=== PATIENT | female | born 1980 | race Two or more races ===

== ENCOUNTER → 2017-10-06 | Outpatient (CLI) | payer BC ==
[2017-10-06 08:36] LABS: Basophils # (auto) 0.1 uL; Eosinophils # (auto) 0.1 uL; Lymphocytes # (auto) 2.1 uL; Mean Corpuscular Hemoglobin 26.2 pg (28.0-32.0); Monocytes % (auto) 5.8 % (0.0-12.0); Red Cell Distribution Width 15.9 % (11.8-14.3)
[2017-10-06 08:38] LABS: Basophils % (auto) 1.1 % (0.0-2.0); Eosinophils % (auto) 1.4 % (0.0-7.0); Hematocrit 37.8 % (36.0-46.0); Hemoglobin 12.4 g/dL (12.2-16.2); Lymphocytes % (auto) 35.3 % (10.0-50.0); Mean Corpuscular Hgb Conc. 32.7 g/dL (32.0-36.0); Mean Corpuscular Volume 80.1 fL (80.0-100.0); Monocytes # (auto) 0.3 uL; Neutrophils # (auto) 3.4 uL; Neutrophils % (auto) 56.4 % (37.0-80.0); Nucleated Red Blood Cells % 0.1 %; Platelet Count (auto) 330 10^3/uL (140-450); Red Blood Cells 4.71 10^6/uL (4.0-5.20); White Blood Cell 5.9 10^3/uL (4.4-10.8)
[2017-10-06 08:58] LABS: Urine Bacteria NONE SEEN /hpf (None Seen); Urine Blood TRACE /uL (Negative); Urine Mucus FEW (None Seen); Urine Specific Gravity 1.024 (1.001-1.035); Urine WBC 1 /hpf (0 - 5)
[2017-10-06 09:04] LABS: Albumin 3.5 g/dL (3.4-5.0); BUN/Creatinine Ratio 10.4; Bilirubin, Total 0.4 mg/dL (0.2-1.0); Calcium 8.6 mg/dL (8.5-10.1); Total Protein 7.3 g/dL (6.4-8.2)
== END | disposition home or self-care (01) ==
LOC: LAB 08:16
PROVIDERS: ATTEND Family Medicine
DX: Z00.01 Encounter for general adult medical examination with abnormal findings (principal); R79.89 Other specified abnormal findings of blood chemistry
CPT/HCPCS: 36415; 80053; 80061; 81001; 85025

== ENCOUNTER → 2018-12-28 | Outpatient (CLI) | payer BC ==
[2018-12-28 07:30] LABS: Eosinophils # (auto) 0.2 uL; Hematocrit 39.6 % (36.0-46.0); Lymphocytes # (auto) 1.9 uL; Lymphocytes % (auto) 33.8 % (10.0-50.0); Monocytes # (auto) 0.4 uL; Neutrophils # (auto) 3.2 uL; White Blood Cell 5.7 10^3/uL (4.4-10.8)
[2018-12-28 07:32] LABS: Basophils # (auto) 0.1 uL; Basophils % (auto) 1.1 % (0.0-2.0); Eosinophils % (auto) 2.9 % (0.0-7.0); Hemoglobin 13.2 g/dL (12.2-16.2); Mean Corpuscular Hemoglobin 27.1 pg (28.0-32.0); Mean Corpuscular Hgb Conc. 33.5 g/dL (32.0-36.0); Mean Corpuscular Volume 80.9 fL (80.0-100.0); Monocytes % (auto) 6.1 % (0.0-12.0); Neutrophils % (auto) 56.1 % (37.0-80.0); Platelet Count (auto) 342 10^3/uL (140-450); Red Blood Cells 4.89 10^6/uL (4.0-5.20)
[2018-12-28 07:39] LABS: Urine WBC None Seen /hpf (0 - 5)
[2018-12-28 07:48] LABS: Urine Bacteria NONE SEEN /hpf (None Seen); Urine Blood 1+ /uL (Negative); Urine Specific Gravity 1.016 (1.001-1.035)
[2018-12-28 08:00] LABS: Albumin 3.5 g/dL (3.4-5.0)
[2018-12-28 08:05] LABS: BUN/Creatinine Ratio 11.9; Bilirubin, Total 0.3 mg/dL (0.2-1.0); Total Protein 7.4 g/dL (6.4-8.2)
== END | disposition home or self-care (01) ==
LOC: LAB 07:05
PROVIDERS: ATTEND Family Medicine
DX: Z00.00 Encounter for general adult medical examination without abnormal findings (principal); R79.89 Other specified abnormal findings of blood chemistry
CPT/HCPCS: 36415; 80053; 80061; 81001; 84443; 85025

== ENCOUNTER 2020-10-01 18:29 | Emergency (ER) | payer BC ==
[~2020-10-01] VITALS: Ht 165.1 cm; Wt 52.2 kg
[2020-10-01 18:38] VITALS: BP 141/86
[2020-10-01 20:23] LABS: Basophils # (auto) 0.1 10 ^3/uL (0-0.2); Eosinophils # (auto) 0.1 10 ^3/uL (0-0.8); Eosinophils % (auto) 1.6 % (0.0-7.0); Hematocrit 38.1 % (36.0-46.0); Hemoglobin 12.9 g/dL (12.2-16.2); Lymphocytes # (auto) 2.8 10 ^3/uL (0.4-5.4); Lymphocytes % (auto) 42.8 % (10.0-50.0); Mean Corpuscular Hgb Conc. 33.9 g/dL (32.0-36.0); Mean Corpuscular Volume 85.6 fL (80.0-100.0); Monocytes # (auto) 0.5 10 ^3/uL (0-1.3); Monocytes % (auto) 7.5 % (0.0-12.0); Neutrophils % (auto) 47.1 % (37.0-80.0); Platelet Count (auto) 315 10^3/uL (140-450); Red Blood Cells 4.45 10^6/uL (4.0-5.20); Red Cell Distribution Width 14.3 % (11.8-14.3); White Blood Cell 6.4 10^3/uL (4.4-10.8)
[2020-10-01 20:31] LABS: Albumin 3.4 g/dL (3.4-5.0); Calcium 8.6 mg/dL (8.5-10.1); Potassium 4.3 mmol/L (3.5-5.1)
[2020-10-01 20:35] LABS: BUN/Creatinine Ratio 9.5; Bilirubin, Total 0.3 mg/dL (0.2-1.0); Total Protein 7.1 g/dL (6.4-8.2)
[2020-10-01 22:44] LABS: Urine Bacteria FEW /hpf (None Seen); Urine Blood Negative /uL (Negative); Urine Specific Gravity 1.005 (1.001-1.035); Urine WBC 3 /hpf (0 - 5)
== END 2020-10-01 23:24 | disposition home or self-care (01) ==
LOC: ER 18:29
DX: R10.11 Right upper quadrant pain (principal)
CPT/HCPCS: 36415; 74176; 80053; 81001; 85025

== ENCOUNTER → 2022-11-07 | Outpatient (CLI) | payer BC | END | disposition home or self-care (01) | LOC: LAB 06:14 | PROVIDERS: ATTEND Nurse Practitioner | DX: N39.0 Urinary tract infection, site not specified (principal); L29.2 Pruritus vulvae | CPT/HCPCS: 87086 ==

== ENCOUNTER → 2023-07-12 | Outpatient (CLI) | payer BC ==
[2023-07-12 07:48] LABS: Basophils # (auto) 0.1 10 ^3/uL (0-0.2); Basophils % (auto) 1.4 % (0.0-2.0); Eosinophils # (auto) 0.1 10 ^3/uL (0-0.8); Eosinophils % (auto) 1.7 % (0.0-7.0); Hematocrit 39.7 % (36.0-46.0); Hemoglobin 13.1 g/dL (12.2-16.2); Lymphocytes # (auto) 2.3 10 ^3/uL (0.4-5.4); Lymphocytes % (auto) 37.5 % (10.0-50.0); Mean Corpuscular Hgb Conc. 32.9 g/dL (32.0-36.0); Monocytes # (auto) 0.4 10 ^3/uL (0-1.3); Monocytes % (auto) 6.1 % (0.0-12.0); Neutrophils # (auto) 3.2 10 ^3/uL (1.6-8.6); Neutrophils % (auto) 53.3 % (37.0-80.0); Nucleated Red Blood Cells % 0.1 %; Red Blood Cells 4.67 10^6/uL (4.0-5.20); Red Cell Distribution Width 15.1 % (11.8-14.3); White Blood Cell 6.1 10^3/uL (4.4-10.8)
[2023-07-12 08:14] LABS: Chloride 104 mmol/L (98-107); Sodium 138 mmol/L (136-145)
[2023-07-12 08:15] LABS: Anion Gap 6 (5-15); Calcium 9.3 mg/dL (8.5-10.1); Carbon Dioxide 28 mmol/L (20-30)
[2023-07-12 08:20] LABS: BUN/Creatinine Ratio 8.2 (10.0-20.0); Blood Urea Nitrogen 7 mg/dL (9-23); Glucose 85 mg/dL (74-106)
[2023-07-13 07:06] LABS: RPR Non Reactive (Non Reactive)
[2023-07-13 08:59] LABS: Hepatitis B Surface Antibody Negative (Negative)
[2023-07-13 09:27] LABS: Hepatitis B Core Total AB Negative (Negative)
[2023-07-13 14:31] LABS: Hepatitis A Total Antibody Negative (Negative); Hepatitis B Surface Antigen Negative (Negative); Hepatitis C Antibody Negative (Negative)
[2023-07-13 23:06] LABS: Chlamydia Trachomatis, NAA Negative (Negative); Neisseria gonorrhoeae, NAA Negative (Negative)
== END | disposition home or self-care (01) ==
LOC: LAB 07:27
PROVIDERS: ATTEND Student in an Organized Health Care Education/Training Program
DX: Z30.9 Encounter for contraceptive management, unspecified (principal); L30.9 Dermatitis, unspecified; N76.0 Acute vaginitis; H60.313 Diffuse otitis externa, bilateral; B37.31 Acute candidiasis of vulva and vagina
CPT/HCPCS: 36415; 80048; 85025; 86592; 86703; 86704; 86706; 86708; 86803; 87340

== ENCOUNTER → 2023-07-20 | Outpatient (CLI) | payer BC | END | disposition home or self-care (01) | LOC: LAB 14:39 | PROVIDERS: ATTEND Student in an Organized Health Care Education/Training Program | DX: N76.0 Acute vaginitis (principal) | CPT/HCPCS: 87081 ==

== ENCOUNTER → 2023-09-01 | Outpatient (CLI) | payer BC ==
[2023-09-01 07:56] LABS: Thyroid Stimulating Hormone 3.68 uIU/mL (0.55-4.78)
[2023-09-01 08:17] LABS: Beta HCG, Quantitative 0.8 mIU/mL (1.5-4.2)
== END | disposition home or self-care (01) ==
LOC: LAB 06:54
PROVIDERS: ATTEND Obstetrics & Gynecology
DX: N95.1 Menopausal and female climacteric states (principal)
CPT/HCPCS: 36415; 82670; 83002; 84403; 84443; 84702

== ENCOUNTER 2024-12-15 16:52 | Emergency (ER) | payer BC ==
[~2024-12-15] VITALS: Ht 165.1 cm; Wt 55.1 kg
[2024-12-15 17:00] VITALS: BP 126/77; TEMP 98.4
[2024-12-15 17:22] LABS: Urine Bacteria FEW /hpf (None Seen); Urine Blood TRACE /uL (Negative); Urine Clarity Clear (Clear); Urine Color Colorless (Yellow); Urine Protein, UAD Negative (Negative); Urine Specific Gravity 1.003 (1.001-1.035); Urine Squamous Epithelial Cell FEW /hpf (<5); Urine Urobilinogen Normal (Negative); Urine WBC < 1 /HPF (0-5); Urine pH 5.5 (5.0-9.0)
[2024-12-15 17:41] VITALS: PULSE 74; RESP 20; O2SAT 96
--- NOTE | 2024-12-15 18:16 | DVH ---
Procedure: CT CT AB PEL WO CON-NO ORAL OR IV 12/15/2024 05:10 PM Indication: flank pain Comparison Study: CT ABD PELVIS WO CONTRAST on DOS: 10/01/20 Technique: Axial images were obtained and reformatted in coronal and sagittal planes. All CT scans at this medical facility are performed using dose modulation techniques as appropriate to a performed e xam including the following: Automated exposure control was utilized; adjustment of the MA and/or KV according to patient size; and use of iterative reconstruction technique. CT Dose: CTDI volume is 5.4 1 mGy. Dose-length product is 260.37 mGy*cm FINDINGS: Lower Chest: Unremarkable. Hepatobiliary: Cholelithiasis without CT evidence of cholecystitis. Spleen: Unremarkable. Pancreas: Unremarkable. Adrenal Glands: Unremarkable. tract: The kidneys are normal in size bilaterally . Mild bilateral hydronephrosis, right greater than left. No ureterolithiasis. The urinary bladder is unremarkable. GI tract: The stomach is moderately distended with ingested material. No evidence of small bowel obst ruction. The large bowel is unremarkable. The appendix is not visualized. No inflammatory change is n oted in the right lower quadrant. Lymphatics: No mesenteric, retroperitoneal or periportal lymphadenopathy. Vasculature: The abdominal aorta is normal in caliber. Pelvic Organs: Unremarkable Bones/soft tissues: No acute abnormality. Clitoral piercing. Other: None. IMPRESSION: 1. Mild bilateral hydronephrosis, right greater than left. No obstructing calculi are seen. 2. Cholelithiasis without evidence of cholecystitis.
[2024-12-15] MEDS ORDERED: IBUP-1454 PO (18:29)
[2024-12-15] MEDS ORDERED: NITR-87 PO (18:29)
--- NOTE | 2024-12-15 18:30 | ED.PDOC ---
History of Present Illness HPI Comments 44-year-old female complaining of right-sided back pain that radiates to her right lower quadrant. Patient was states it started earlier in the day. Denies any urinary discomfort. Nothing makes it better, nothing makes it worse. No fevers no chills no nausea no vomiting. Chief Complaint: Flank Pain Time Seen by MD: 16:57 Primary Care Provider: LUNA Mustafa Notes: Nurses Notes Allergies: Coded Allergies: NO KNOWN ALLERGIES (Unverified , 10/01/20) Information Source: Patient Mode of Arrival: Ambulatory Past Medical History PAST MEDICAL HISTORY: Denies Surgical History: Denies all surgeries INLETTER History: No Pertinent INLETTER History Family History Family History: Reviewed,noncontributory to illness Social History Smoker: Non-Smoker Alcohol: Occasionally Drugs: Denies Drug Use Lives In: Home Constitutional: denies: chills, diaphoresis, fatigue, fever, malaise, sweats, weakness, others EENTM: denies: blurred vision, double vision, ear bleeding, ear discharge, ear drainage, ear pain, ear ringing, eye pain, eye redness, hearing loss, mouth pain, mouth swelling, nasal discharge, nose bleeding, nose congestion, nose pain, photophobia, tearing, throat pain, throat swelling, voice changes, others Respiratory: denies: cough, hemoptysis, orthopnea, SOB at rest, shortness of breath, SOB with excertion, stridor, wheezing, others Cardiovascular: denies: chest pain, dizzy spells, diaphoresis, Dyspnea on exertion, edema, irregular heart beat, left arm pain, lightheadedness, palpitations, PND, syncope, others Gastrointestinal: reports: abdominal pain; denies: abdomen distended, blood str eaked bowels, constipated, diarrhea, dysphagia, difficulty swallowing, hematemesis, melena, nausea, poor appetite, poor fluid intake, rectal bleeding, rectal pain, vomiting, others Genitourinary: reports: flank pain; denies: abnormal vagina bleeding, burning, dyspareunia, dysuria, frequency, hematuria, incontinence, pain, , vagina discharge, urgency, others Neurological: denies: dizziness, fainting, headache, left sided numbness, left sided weakness, numbness, paresthesia, pre-existing deficit, right sided numbness, right sided weakness, seizure, speech problems, tingling, tremors, weakness, others Musculoskeletal: denies: back pain, gout, joint pain, joint swelling, muscle pain, muscle stiffness, neck pain, others Integumetry: denies: bruises, change in color, change in hair/nails, dryness, laceration, lesions, lumps, rash, wounds, others Allergic/Immunocompromised: denies: Difficulty Healing, Frequent Infections, Hives, Itching, others Hematologic/Lymphatic: denies: anemia, blood clots, easy bleeding, easy bruising, swollen glands, others Physical Exam General Appearance: No Apparent Distress, Normal HEENT: Normal ENT Inspection, Pharynx Normal, TMs Normal Neck: Full Range of Motion, Non-Tender, Normal, Normal Inspection Respiratory: Chest Non-Tender, Lungs Clear, No Accessory Muscle Use, No Respiratory Distress, Normal Breath Sounds Cardiovascular: No Edema, No JVD, No Murmur, No Gallop, Normal Peripheral Pulses, Regular Rate/Rhythm Breast Exam: Deferred Gastrointestinal: No Organomegaly, Non Tender, No Pulsatile Mass, Normal Bowel Sounds, Soft Genitalia: Deferred Pelvic: Deferred Rectal: Deferred Extremities: No calf tenderness, Normal capillary refill, Normal inspection, Normal range of motion, Non-tender, No pedal edema Musculoskeletal : Extremity Location: Other (No CVA tenderness) Apperance: Normal Neurologic: Alert, 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 Was a procedure done?: No Differential Dx Considerations may include: Pyelonephritis, obstructing kidney stone, cholelithiasis, cholecystitis. X-Ray, Labs, Meds, VS Vital Signs Date Time Temp Pulse Resp B/P (MAP) Pulse Ox O2 Delivery O2 Flow Rate FiO2 12/15/24 17:41 74 20 96 Room Air* 0 21 12/15/24 17:00 98.4 84 20 126/77 (93) 99 98.4 Lab Test 12/15/24 16:00 Range/Units Urine Color Colorless Yellow Urine Clarity Clear Clear Urine pH 5.5 5.0-9.0 Urine Specific [place] 1.003 1.001-1.035 Urine Protein Negative Negative Urine Ketones Negative Negative Urine Blood Trace H Negative /uL Urine Nitrite Negative Negative Urine Bilirubin Negative Negative Urine Urobilinogen Normal Negative mg/dL Urine Leukocyte Esterase Negative Negative /uL Urine RBC 1 0 - 4 /hpf Urine Microscopic WBC < 1 0-5 /HPF Urine Squamous Epithelial Cells Few <5 /hpf Urine Bacteria Few H None Seen /hpf Urine Glucose Normal Normal mg/dL X-Ray, Labs, Meds, VS Comment Imaging: X-rays and CT scans were reviewed and interpreted by this provider, imaging shows hydronephrosis with bilateral kidneys and cholelithiasis without evidence of cholecystitis. Pending radiology review. Laboratory: Labs reviewed and interpreted by this provider. No significant abnormalities noted. Patient has prior medical visits reviewed. Med reconciliation performed Vital signs reviewed Time of 1ST Reevaluation: 18:30 Reevaluation 1ST: Unchanged Patient Education/Counseling: Diagnosis, Treatment, Need For Follow Up (Follow up in the emergency department in the next 24-48 hours if symptoms worsen. It was advised to follow up with your primary care doctor in the next 3-4 days for further evaluation.) Family Education/Counseling: Diagnosis, Treatment Departure 1 Departure Time of Disposition: 18:27 Impression: Primary Impression: Urinary tract infection Qualified Codes: N30.01 - Acute cystitis with hematuria Additional Impression: Cholelithiasis Qualified Codes: K80.80 - Other cholelithiasis without obstruction Disposition: HOME / SELF CARE / HOMELESS Condition: Fair e-Prescriptions Ibuprofen (Ibuprofen) 600 Mg Tab 1 TAB PO TID PRN, #30 TAB Prov: FELI PATTEN 12/15/24 Nitrofurantoin Monohydrate Mac (Macrobid) 100 Mg Cap 100 MG PO BID for 7 Days, #14 CAP Prov: FELI PATTEN 12/15/24 Discharged With: Self Critical Care Note Critical Care Time?: No Stability Stability form required: No Heart Score Heart Score: Heart Score Response (Comments) Value History N/A 0 EKG N/A 0 Age N/A 0 Risk Factors N/A 0 Troponin N/A 0 Total 0 FELI PATTEN Dec 15, 2024 18:30
[2024-12-15] MEDS: KETOROLAC TROMETH 30 MG/ML 1ML VIAL IM ONE (18:48)
[2024-12-15] MEDS: cefTRIAXone SOD 1,000 MG VL IM ONE (18:49)
== END 2024-12-15 19:01 | disposition home or self-care (01) ==
LOC: ER 16:52
DX: N39.0 Urinary tract infection, site not specified (principal); K80.20 Calculus of gallbladder without cholecystitis without obstruction
CPT/HCPCS: 74176; 81001; 96372; 99285; J0696; J1885